=== PATIENT | female | born 2000 | race Caucasian/White ===

== ENCOUNTER 2022-11-18 18:51 | Emergency (ER) | payer BC ==
[~2022-11-18] VITALS: Ht 170.2 cm; Wt 119.6 kg
[2022-11-18 21:30] VITALS: BP 131/80
== END 2022-11-18 21:32 | disposition home or self-care (01) ==
LOC: M ED 20:41
DX: S53.401A Unspecified sprain of right elbow, initial encounter (principal); S50.311A Abrasion of right elbow, initial encounter; S50.01XA Contusion of right elbow, initial encounter; W22.8XXA Striking against or struck by other objects, initial encounter; Y92.099 Unspecified place in other non-institutional residence as the place of occurrence of the external cause; Y93.89 Activity, other specified; F41.9 Anxiety disorder, unspecified; F32.9 Major depressive disorder, single episode, unspecified; E66.9 Obesity, unspecified

== ENCOUNTER → 2022-11-20 | Outpatient (CLI) | payer BC ==
[2022-11-20 14:53] LABS: BASO % 0.4 % (0.0-1.0); EOS # 0.1 10^3/uL (0.0-0.5); EOS % 1.7 % (0.0-3.0); HEMATOCRIT 43.7 % (36.0-47.0); HEMOGLOBIN 14.3 g/dl (12.0-15.5); LYMPH # 2.8 10^3/uL (1.5-5.0); LYMPH % 39.9 % (24.0-44.0); MEAN CORPUSCULAR HEMOGLOBIN 27.8 pg (27.0-33.0); MEAN CORPUSCULAR HGB CONC 32.7 g/dl (32.0-36.5); MONO # 0.5 10^3/uL (0.0-0.8); MONO % 6.7 % (2.0-8.0); NEUTROPHILS # 3.6 10^3/uL (1.5-8.5); NEUTROPHILS % 51.2 % (36.0-66.0); PLATELET COUNT, AUTOMATED 229 10^3/uL (150-450); RED BLOOD COUNT 5.14 10^6/uL (4.00-5.40)
[2022-11-20 15:02] LABS: ERYTHROCYTE SEDIMENTATION RATE 19 mm/hr (0-20)
[2022-11-20 15:14] LABS: ALBUMIN 3.6 G/DL (3.2-5.2); ALKALINE PHOSPHATASE 43 U/L (46-116); ALT/SGPT 194 U/L (7.0-40); AST/SGOT 90 U/L (<34); BILIRUBIN,TOTAL 0.4 MG/DL (0.3-1.2); BLOOD UREA NITROGEN 12 MG/DL (9-23); CALCIUM LEVEL 9.1 MG/DL (8.5-10.1); CARBON DIOXIDE LEVEL 24 MMOL/L (20-31); CHLORIDE LEVEL 106 MMOL/L (98-107); CREATININE FOR GFR 0.62 MG/DL (0.55-1.30); GLOMERULAR FILTRATION RATE > 60.0 (>60); GLUCOSE, FASTING 92 MG/DL (60-100); POTASSIUM SERUM 4.4 MMOL/L (3.5-5.1); SODIUM LEVEL 138 MMOL/L (136-145); TOTAL PROTEIN 7.1 G/DL (5.7-8.2)
[2022-11-20 15:16] LABS: URIC ACID 5.3 MG/DL (3.1-7.8)
[2022-11-23 20:07] LABS: ANA (HEP2) Positive (.); CYCLIC CITRULLINATED PEPTIDE 5 units (0-19)
== END ==
LOC: M LAB 13:57
PROVIDERS: ATTEND Physician Assistant Surgical
DX: M75.41 Impingement syndrome of right shoulder (principal); M25.511 Pain in right shoulder; M25.512 Pain in left shoulder

== ENCOUNTER 2023-04-01 21:42 | Emergency (ER) | payer BC ==
[~2023-04-01] VITALS: Ht 170.2 cm; Wt 119.2 kg
[2023-04-01 22:29] LABS: BASO # 0.1 10^3/uL (0.0-0.2); BASO % 0.7 % (0.0-1.0); EOS # 0.2 10^3/uL (0.0-0.5); EOS % 1.4 % (0.0-3.0); HEMOGLOBIN 14.1 g/dl (12.0-15.5); LYMPH # 3.6 10^3/uL (1.5-5.0); LYMPH % 33.4 % (24.0-44.0); MEAN CORPUSCULAR HEMOGLOBIN 28.4 pg (27.0-33.0); MEAN CORPUSCULAR HGB CONC 33.6 g/dl (32.0-36.5); MEAN CORPUSCULAR VOLUME 84.7 fl (80.0-96.0); MONO # 0.8 10^3/uL (0.0-0.8); MONO % 7.8 % (2.0-8.0); NEUTROPHILS % 56.5 % (36.0-66.0); PLATELET COUNT, AUTOMATED 288 10^3/uL (150-450); RED BLOOD COUNT 4.96 10^6/uL (4.00-5.40); WHITE BLOOD COUNT 10.6 10^3/uL (4.0-10.0)
[2023-04-01 22:52] LABS: ALBUMIN 3.8 G/DL (3.2-5.2); ALKALINE PHOSPHATASE 52 U/L (46-116); ALT/SGPT 206 U/L (7.0-40); AST/SGOT 93 U/L (<34); BILIRUBIN,DIRECT 0.1 MG/DL (<0.4); BILIRUBIN,TOTAL 0.3 MG/DL (0.3-1.2); BLOOD UREA NITROGEN 12 MG/DL (9-23); CALCIUM LEVEL 9.8 MG/DL (8.5-10.1); CARBON DIOXIDE LEVEL 28 MMOL/L (20-31); CHLORIDE LEVEL 104 MMOL/L (98-107); CREATININE FOR GFR 0.77 MG/DL (0.55-1.30); GLOMERULAR FILTRATION RATE > 60.0 (>60); GLUCOSE, FASTING 93 MG/DL (60-100); POTASSIUM SERUM 4.7 MMOL/L (3.5-5.1); SODIUM LEVEL 139 MMOL/L (136-145); TOTAL PROTEIN 6.9 G/DL (5.7-8.2)
[2023-04-01 22:54] LABS: LIPASE 32 U/L (12-53)
[2023-04-01 23:00] LABS: HCG, SERUM QUALITATIVE NEGATIVE (NEGATIVE)
[2023-04-02 07:45] VITALS: BP 132/81
== END 2023-04-02 08:06 | disposition home or self-care (01) ==
LOC: M ED 21:42
DX: R10.9 Unspecified abdominal pain (principal)

== ENCOUNTER → 2023-06-22 | Outpatient (CLI) | payer BC | LOC: M RAD 11:43 | PROVIDERS: ATTEND Surgery | DX: R10.11 Right upper quadrant pain (principal) | CPT/HCPCS: 78227; A9537 ==

== ENCOUNTER 2023-08-26 07:32 | Day surgery (SDC) | payer BC ==
[~2023-08-26] VITALS: Ht 170.2 cm; Wt 114.8 kg
[~2023-08-26 07:32] MED LIST: DEXM1CAP14 PO
[2023-08-26] MEDS ORDERED: LR 1,000 ML IV SCH ×2 (08:10→10:05)
[2023-08-26] MEDS ORDERED: METOCLOPRAMIDE INJ 10MG/2ML VIAL As Ordered ONE (08:10)
[2023-08-26] MEDS ORDERED: fentaNYL 100 MCG/2 ML INJECTION As Ordered ONE (08:10)
[2023-08-26] MEDS ORDERED: MIDAZOLAM INJ 2MG/2ML VIAL As Ordered ONE (08:10)
[2023-08-26] MEDS ORDERED: ONDANSETRON 4MG 2ML VIAL IV PRN (10:05)
[2023-08-26] MEDS: fentaNYL 100 MCG/2 ML INJECTION IV PRN ×4 (10:19→10:33)
[2023-08-26] MEDS ORDERED: NORCO, ANEXSIA 5/325MG TABLET (HYDROcodone/ACETAMINOPHEN) PO PRN (10:20)
[2023-08-26] MEDS: MEPERIDINE 25 MG/ML 1ML VIAL IV PRN ×2 (10:28→10:38)
[2023-08-26] MEDS ORDERED: HYDROMORPHONE HCL 0.5 MG/ 0.5 ML SYRINGE IV PRN (10:50)
[2023-08-26] MEDS ORDERED: KETOROLAC 30 MG/ML 1ML VIAL IV ONE (10:50)
[2023-08-26] MEDS ORDERED: ACETAMINOPHEN 325 MG TAB PO ONE (10:50)
[2023-08-26 12:40] VITALS: BP 135/88; TEMP 97.8; O2SAT 98
== END 2023-08-26 12:45 | disposition home or self-care (01) ==
LOC: M SDC 07:32
PROVIDERS: ATTEND Surgery
DX: K82.8 Other specified diseases of gallbladder (principal); Z90.49 Acquired absence of other specified parts of digestive tract

== ENCOUNTER 2023-10-10 04:42 | Emergency (ER) | payer BC ==
[~2023-10-10] VITALS: Ht 170.2 cm; Wt 114.0 kg
[2023-10-10 05:38] LABS: BASO % 0.4 % (0.0-1.0); EOS # 0.3 10^3/uL (0.0-0.5); EOS % 2.9 % (0.0-3.0); HEMATOCRIT 41.7 % (36.0-47.0); LYMPH # 1.7 10^3/uL (1.5-5.0); LYMPH % 16.1 % (24.0-44.0); MEAN CORPUSCULAR HGB CONC 33.6 g/dl (32.0-36.5); MEAN CORPUSCULAR VOLUME 86.5 fl (80.0-96.0); MONO # 0.9 10^3/uL (0.0-0.8); NEUTROPHILS # 7.7 10^3/uL (1.5-8.5); NEUTROPHILS % 72.3 % (36.0-66.0); PLATELET COUNT, AUTOMATED 290 10^3/uL (150-450); RED BLOOD COUNT 4.82 10^6/uL (4.00-5.40); WHITE BLOOD COUNT 10.6 10^3/uL (4.0-10.0)
[2023-10-10 06:08] LABS: BLOOD UREA NITROGEN 10 MG/DL (9-23); CALCIUM LEVEL 8.8 MG/DL (8.5-10.1); CARBON DIOXIDE LEVEL 24 MMOL/L (20-31); CHLORIDE LEVEL 106 MMOL/L (98-107); CREATININE FOR GFR 0.64 MG/DL (0.55-1.30); GLOMERULAR FILTRATION RATE > 60.0 (>60); GLUCOSE, FASTING 105 MG/DL (60-100); POTASSIUM SERUM 4.1 MMOL/L (3.5-5.1); SODIUM LEVEL 139 MMOL/L (136-145)
[2023-10-10] MEDS ORDERED: LIDOCAINE 1% MDV 20ML VIAL SC ONE (08:35)
[2023-10-10] MEDS ORDERED: DOXY-443 PO (09:29)
[2023-10-10 09:41] VITALS: BP 131/88; TEMP 98; O2SAT 99
== END 2023-10-10 09:44 | disposition home or self-care (01) ==
LOC: M ED 04:42
DX: L05.01 Pilonidal cyst with abscess (principal)

== ENCOUNTER 2023-11-11 09:08 | Day surgery (SDC) | payer BC ==
[~2023-11-11] VITALS: Ht 170.2 cm; Wt 112.5 kg
[~2023-11-11 09:08] MED LIST changes: +DOXY-443 PO; +LIDOCAINE 2% 100MG/5ML SDV (FOR ANES.) As Ordered ONE; +MIDAZOLAM INJ 2MG/2ML VIAL As Ordered ONE; +propofoL 200 MG/20 ML VIAL As Ordered ONE
[2023-11-11] MEDS ORDERED: LR 1,000 ML IV SCH ×2 (09:30→10:45)
[2023-11-11] MEDS ORDERED: CHLOROPROCAINE PRES. FREE 3% 20ML VIAL As Ordered ONE (10:14)
[2023-11-11] MEDS ORDERED: oxyCODONE 5MG TAB PO PRN (10:45)
[2023-11-11] MEDS ORDERED: ONDANSETRON 4MG 2ML VIAL IV PRN (10:45)
[2023-11-11] MEDS ORDERED: HYDROMORPHONE HCL 0.5 MG/ 0.5 ML SYRINGE IV PRN (10:45)
[2023-11-11] MEDS ORDERED: fentaNYL 100 MCG/2 ML INJECTION IV PRN (10:45)
[2023-11-11 11:20] VITALS: BP 119/88; TEMP 97.1; O2SAT 100
== END 2023-11-11 11:58 | disposition home or self-care (01) ==
LOC: M SDC 09:08
PROVIDERS: ATTEND Surgery
DX: L05.91 Pilonidal cyst without abscess (principal); F90.9 Attention-deficit hyperactivity disorder, unspecified type; F41.9 Anxiety disorder, unspecified; F32.A Depression, unspecified; Z79.899 Other long term (current) drug therapy
CPT/HCPCS: 11770; 81025; 88304; J2250; J2401

== ENCOUNTER → 2024-02-17 | Outpatient (CLI) | payer BC ==
[~2024-02-17] MED LIST changes: +ISOVUE-370 76% 100ML VIAL As Ordered ONE; -LIDOCAINE 2% 100MG/5ML SDV (FOR ANES.) As Ordered ONE; -MIDAZOLAM INJ 2MG/2ML VIAL As Ordered ONE; -propofoL 200 MG/20 ML VIAL As Ordered ONE
== END ==
LOC: M RAD 16:16
PROVIDERS: ATTEND Physician Assistant
DX: R10.12 Left upper quadrant pain (principal)

== ENCOUNTER 2024-04-21 08:56 | Day surgery (SDC) | payer BC ==
[~2024-04-21] VITALS: Ht 170.2 cm; Wt 108.0 kg
[~2024-04-21 08:56] MED LIST changes: +DOXY-323 PO; -DOXY-443 PO; -ISOVUE-370 76% 100ML VIAL As Ordered ONE
[2024-04-21] MEDS: NS 1,000 ML IV ONE (09:55)
[2024-04-21] MEDS ORDERED: fentaNYL 100 MCG/2 ML INJECTION As Ordered ONE (10:26)
[2024-04-21] MEDS ORDERED: LIDOCAINE 2% 100MG/5ML SDV (FOR ANES.) As Ordered ONE (10:50)
[2024-04-21] MEDS ORDERED: propofoL 200 MG/20 ML VIAL As Ordered ONE (10:50)
[2024-04-21 10:52] VITALS: TEMP 97.4
[2024-04-21 11:09] VITALS: BP 123/76; O2SAT 97
== END 2024-04-21 11:15 | disposition home or self-care (01) ==
LOC: M OPP 08:56
PROVIDERS: ATTEND Surgery
DX: K29.70 Gastritis, unspecified, without bleeding (principal); R10.13 Epigastric pain; Z79.3 Long term (current) use of hormonal contraceptives; Z79.891 Long term (current) use of opiate analgesic; Z79.899 Other long term (current) drug therapy
CPT/HCPCS: 43239; 88305; J3010

== ENCOUNTER → 2024-05-02 | Outpatient (CLI) | payer BC ==
[2024-05-02 14:36] LABS: ALBUMIN 3.6 G/DL (3.2-5.2); ALKALINE PHOSPHATASE 48 U/L (46-116); ALT/SGPT 48 U/L (7.0-40); AST/SGOT 25 U/L (<34); BILIRUBIN,TOTAL 0.8 MG/DL (0.3-1.2); BLOOD UREA NITROGEN 12 MG/DL (9-23); CALCIUM LEVEL 9.2 MG/DL (8.5-10.1); CARBON DIOXIDE LEVEL 26 MMOL/L (20-31); CHLORIDE LEVEL 107 MMOL/L (98-107); CREATININE FOR GFR 0.68 MG/DL (0.55-1.30); FREE T4 1.18 NG/DL (0.89-1.76); GLOMERULAR FILTRATION RATE > 60.0 (>60); GLUCOSE, FASTING 78 MG/DL (60-100); HCG, SERUM QUANTITATIVE 2.7 MIU/ML (<4.2); POTASSIUM SERUM 4.1 MMOL/L (3.5-5.1); SODIUM LEVEL 137 MMOL/L (136-145); THYROID STIMULATING HORMONE 1.068 uIU/ML (0.55-4.78); TOTAL PROTEIN 6.7 G/DL (5.7-8.2)
[2024-05-02 14:37] LABS: PROLACTIN 15.99 NG/ML
[2024-05-02 14:38] LABS: ESTRADIOL 195.5 PG/ML
== END ==
LOC: M LAB 13:13
PROVIDERS: ATTEND Nurse Practitioner Family
DX: N91.2 Amenorrhea, unspecified (principal)

== ENCOUNTER → 2024-06-06 | Outpatient (CLI) | payer BC ==
[~2024-06-06] MED LIST changes: +E-Z-HD 98% w/w 340GM SUSP BTL As Ordered ONE; +E-Z-PAQUE 96% w/w SUSP 176GM BTL As Ordered ONE
== END ==
LOC: M RAD 09:13
PROVIDERS: ATTEND Physician Assistant
DX: R10.13 Epigastric pain (principal)

== ENCOUNTER → 2024-06-19 | Outpatient (REF) ==
[~2024-06-19] MED LIST changes: -E-Z-HD 98% w/w 340GM SUSP BTL As Ordered ONE; -E-Z-PAQUE 96% w/w SUSP 176GM BTL As Ordered ONE
== END ==
LOC: M EMP 16:06
PROVIDERS: ATTEND Family Medicine
DX: Z11.52 Encounter for screening for COVID-19 (principal)

== ENCOUNTER → 2024-10-30 | Outpatient (REF) ==
[~2024-10-30] MED LIST changes: -DOXY-323 PO; +DOXY-441 PO
== END ==
LOC: M EMP 09:27
PROVIDERS: ATTEND Family Medicine
DX: Z01.89 Encounter for other specified special examinations (principal)

== ENCOUNTER 2024-11-28 15:31 | Emergency (ER) | payer BC ==
[~2024-11-28] VITALS: Ht 170.2 cm; Wt 115.5 kg
[2024-11-28 15:34] VITALS: BP 132/84; TEMP 98.6; O2SAT 99
[2024-11-28] MEDS ORDERED: ACE65ERTAB PO (15:39)
[2024-11-28] MEDS ORDERED: MULTTAB20 PO (15:39)
== END 2024-11-28 18:08 | disposition home or self-care (01) ==
LOC: M ED 15:31
DX: M43.6 Torticollis (principal); Z79.1 Long term (current) use of non-steroidal anti-inflammatories (NSAID); Z79.810 Long term (current) use of selective estrogen receptor modulators (SERMs)

== ENCOUNTER → 2024-12-12 | Outpatient (CLI) | payer BC ==
[~2024-12-12] MED LIST changes: +ACE65ERTAB PO; +MULTTAB20 PO
== END ==
LOC: M RAD 15:41
PROVIDERS: ATTEND Nurse Practitioner Family
DX: Z34.91 Encounter for supervision of normal pregnancy, unspecified, first trimester (principal); Z3A.01 Less than 8 weeks gestation of pregnancy

== ENCOUNTER 2024-12-25 15:03 | Emergency (ER) | payer BC ==
[~2024-12-25] VITALS: Ht 170.2 cm; Wt 117.1 kg
[2024-12-25] MEDS ORDERED: CLOB0.057 (15:12)
[2024-12-25 17:14] LABS: BASO % 0.3 % (0.0-1.0); EOS # 0.1 10^3/uL (0.0-0.5); EOS % 0.6 % (0.0-3.0); HEMATOCRIT 39.3 % (36.0-47.0); HEMOGLOBIN 13.4 g/dl (12.0-15.5); LYMPH # 2.6 10^3/uL (1.5-5.0); LYMPH % 23.8 % (24.0-44.0); MEAN CORPUSCULAR HEMOGLOBIN 29.1 pg (27.0-33.0); MEAN CORPUSCULAR HGB CONC 34.1 g/dl (32.0-36.5); MEAN CORPUSCULAR VOLUME 85.2 fl (80.0-96.0); MONO # 0.7 10^3/uL (0.0-0.8); MONO % 6.4 % (2.0-8.0); NEUTROPHILS # 7.5 10^3/uL (1.5-8.5); NEUTROPHILS % 68.5 % (36.0-66.0); PLATELET COUNT, AUTOMATED 266 10^3/uL (150-450); RED BLOOD COUNT 4.61 10^6/uL (4.00-5.40); WHITE BLOOD COUNT 10.9 10^3/uL (4.0-10.0)
[2024-12-25 17:28] LABS: KETONE, URINE AUTO RFX NEGATIVE (NEGATIVE); LEUKOCYTE ESTERASE UR AUTO RFX NEGATIVE (NEGATIVE); NITRITE, URINE AUTO RFX NEGATIVE (NEGATIVE); RBC, URINE AUTO RFX 1 /HPF (0-3); SQUAM EPITHELIAL CELL UR AURFX 1 /HPF (0-6); WBC, URINE AUTO RFX 1 /HPF (0-3)
[2024-12-25 17:36] LABS: BLOOD UREA NITROGEN 9 MG/DL (9-23); CALCIUM LEVEL 9.3 MG/DL (8.5-10.1); CARBON DIOXIDE LEVEL 24 MMOL/L (20-31); CHLORIDE LEVEL 107 MMOL/L (98-107); CREATININE FOR GFR 0.55 MG/DL (0.55-1.30); GLOMERULAR FILTRATION RATE > 60.0 (>60); GLUCOSE, FASTING 83 MG/DL (60-100); POTASSIUM SERUM 4.1 MMOL/L (3.5-5.1); SODIUM LEVEL 140 MMOL/L (136-145)
[2024-12-25 17:48] LABS: HCG, SERUM QUANTITATIVE 64300.6 MIU/ML (<4.2)
[2024-12-25 19:12] LABS: Trichomonas vaginalis (AMP) NOT DETECTED (NEGATIVE)
[2024-12-25] MEDS: RHOGAM 300MCG (1500IU) INJ IM ONE (19:27)
[2024-12-25 19:36] LABS: GC DNA AMPLIFICATION NEGATIVE (NEGATIVE)
[2024-12-25 20:27] VITALS: BP 130/78; TEMP 96.8; O2SAT 97
== END 2024-12-25 20:32 | disposition home or self-care (01) ==
LOC: M ED 15:03
DX: O20.8 Other hemorrhage in early pregnancy (principal); Z3A.09 9 weeks gestation of pregnancy; O99.611 Diseases of the digestive system complicating pregnancy, first trimester; K21.9 Gastro-esophageal reflux disease without esophagitis; O99.341 Other mental disorders complicating pregnancy, first trimester; F41.9 Anxiety disorder, unspecified; F32.A Depression, unspecified; Z79.899 Other long term (current) drug therapy
CPT/HCPCS: 76801; 80048; 81001; 84702; 85025; 86850; 86900; 86901; 87661; 87810; 87850; 93976; 96372; 99283; J2790

== ENCOUNTER 2025-01-06 21:00 | Emergency (ER) | payer BC ==
[~2025-01-06] VITALS: Ht 170.2 cm; Wt 114.9 kg
[~2025-01-06 21:00] MED LIST changes: +CLOB0.057
[2025-01-06 21:03] VITALS: TEMP 97.7
[2025-01-06 21:28] LABS: BASO % 0.3 % (0.0-1.0); EOS # 0.1 10^3/uL (0.0-0.5); EOS % 0.8 % (0.0-3.0); HEMATOCRIT 41.1 % (36.0-47.0); HEMOGLOBIN 13.9 g/dl (12.0-15.5); LYMPH # 2.6 10^3/uL (1.5-5.0); LYMPH % 26.3 % (24.0-44.0); MEAN CORPUSCULAR HEMOGLOBIN 28.8 pg (27.0-33.0); MEAN CORPUSCULAR HGB CONC 33.8 g/dl (32.0-36.5); MEAN CORPUSCULAR VOLUME 85.1 fl (80.0-96.0); MONO # 0.7 10^3/uL (0.0-0.8); MONO % 6.6 % (2.0-8.0); NEUTROPHILS # 6.5 10^3/uL (1.5-8.5); NEUTROPHILS % 65.8 % (36.0-66.0); PLATELET COUNT, AUTOMATED 242 10^3/uL (150-450); RED BLOOD COUNT 4.83 10^6/uL (4.00-5.40); WHITE BLOOD COUNT 9.9 10^3/uL (4.0-10.0)
[2025-01-06 21:56] LABS: BLOOD UREA NITROGEN 7 MG/DL (9-23); CALCIUM LEVEL 8.9 MG/DL (8.5-10.1); CARBON DIOXIDE LEVEL 24 MMOL/L (20-31); CHLORIDE LEVEL 106 MMOL/L (98-107); CREATININE FOR GFR 0.54 MG/DL (0.55-1.30); GLOMERULAR FILTRATION RATE > 60.0 (>60); GLUCOSE, FASTING 84 MG/DL (60-100); POTASSIUM SERUM 3.7 MMOL/L (3.5-5.1); SODIUM LEVEL 140 MMOL/L (136-145)
[2025-01-06 22:24] LABS: HCG, SERUM QUANTITATIVE 75575.1 MIU/ML (<4.2)
[2025-01-07] MEDS ORDERED: RHOGAM 300MCG (1500IU) INJ IM ONE (01:00)
[2025-01-07 01:14] VITALS: BP 112/58; O2SAT 99
== END 2025-01-07 01:15 | disposition home or self-care (01) ==
LOC: M ED 21:00
DX: O26.851 Spotting complicating pregnancy, first trimester (principal); Z3A.11 11 weeks gestation of pregnancy; Z79.1 Long term (current) use of non-steroidal anti-inflammatories (NSAID); Z79.810 Long term (current) use of selective estrogen receptor modulators (SERMs)

== ENCOUNTER → 2025-01-12 | Outpatient (REF) | payer BC | LOC: M PLALAB 15:25 | PROVIDERS: ATTEND Obstetrics & Gynecology | DX: Z34.80 Encounter for supervision of other normal pregnancy, unspecified trimester (principal) ==

== ENCOUNTER → 2025-01-15 | Outpatient (CLI) | payer BC ==
[2025-01-15 11:33] LABS: HEMATOCRIT 38.9 % (36.0-47.0); HEMOGLOBIN 13.2 g/dl (12.0-15.5); MEAN CORPUSCULAR HEMOGLOBIN 28.8 pg (27.0-33.0); MEAN CORPUSCULAR HGB CONC 33.9 g/dl (32.0-36.5); MEAN CORPUSCULAR VOLUME 84.9 fl (80.0-96.0); PLATELET COUNT, AUTOMATED 254 10^3/uL (150-450); RED BLOOD COUNT 4.58 10^6/uL (4.00-5.40); WHITE BLOOD COUNT 9.4 10^3/uL (4.0-10.0)
[2025-01-15 11:45] LABS: HEMOGLOBIN A1c 4.7 % (4.0-6.0)
[2025-01-15 11:56] LABS: GLUCOSE CHALLENGE TEST 1 HOUR 109 MG/DL (LESS THAN 140)
[2025-01-15 12:28] LABS: HIV 1&2 SCREEN NEGATIVE (NEGATIVE)
[2025-01-15 12:36] LABS: HEPATITIS C VIRUS ABY INDEX 0.04 INDEX (<0.8)
[2025-01-15 13:04] LABS: Trichomonas vaginalis (AMP) NOT DETECTED (NEGATIVE)
[2025-01-15 13:27] LABS: GC DNA AMPLIFICATION NEGATIVE (NEGATIVE)
== END ==
LOC: M LAB 09:17
PROVIDERS: ATTEND Obstetrics & Gynecology
DX: Z34.80 Encounter for supervision of other normal pregnancy, unspecified trimester (principal)

== ENCOUNTER → 2025-03-09 | Outpatient (CLI) | payer BC | LOC: M RAD 13:57 | PROVIDERS: ATTEND Obstetrics & Gynecology | DX: Z34.02 Encounter for supervision of normal first pregnancy, second trimester (principal); Z3A.19 19 weeks gestation of pregnancy ==

== ENCOUNTER 2025-05-11 17:44 | Outpatient (CLI) | payer BC ==
[~2025-05-11] VITALS: Ht 170.2 cm; Wt 120.6 kg
[2025-05-11] MEDS ORDERED: VITA100T59 PO (18:04)
[2025-05-11] MEDS ORDERED: OMEP10CASR PO (18:04)
[2025-05-11] MEDS ORDERED: ASPI81CH33 PO (18:04)
[2025-05-11] MEDS ORDERED: IRON325T2 PO (18:04)
[2025-05-11] MEDS ORDERED: HOME MED LIST COMPLETE! XX SCH (18:05)
[2025-05-11 18:13] VITALS: BP 143/97
[2025-05-11 18:36] VITALS: BP 138/89
[2025-05-11 18:40] LABS: PLATELET COUNT, AUTOMATED 239 10^3/uL (150-450)
[2025-05-11 18:46] VITALS: BP 138/93
[2025-05-11] MEDS: ACETAMINOPHEN 500 MG TAB PO ONE (18:51)
[2025-05-11 18:56] VITALS: BP 140/95
[2025-05-11 19:06] VITALS: BP 135/83
[2025-05-11 19:10] LABS: TOTAL PROTEIN,RANDOM URINE < 6.0 MG/DL (0.0-14.0)
[2025-05-11 19:13] LABS: LDH LACTATE DEHYDROGENASE 173 U/L (120-246)
[2025-05-11 19:15] LABS: ALT/SGPT 20 U/L (7.0-40); AST/SGOT 18 U/L (<34); CREATININE FOR GFR 0.48 MG/DL (0.55-1.30); GLOMERULAR FILTRATION RATE > 90.0 (>60)
[2025-05-11 19:16] VITALS: BP 138/88
== END 2025-05-11 19:23 | disposition home or self-care (01) ==
LOC: M LDO 17:44
PROVIDERS: ATTEND Advanced Practice Midwife
DX: O26.893 Other specified pregnancy related conditions, third trimester (principal); O99.213 Obesity complicating pregnancy, third trimester; R03.0 Elevated blood-pressure reading, without diagnosis of hypertension; R51.0 Headache with orthostatic component, not elsewhere classified; E66.9 Obesity, unspecified; Z67.11 Type A blood, Rh negative; Z3A.28 28 weeks gestation of pregnancy
CPT/HCPCS: 36415; 59025; 82247; 82570; 83615; 84156; 84450; 84460; 84550; 85027; G0463

== ENCOUNTER → 2025-05-16 | Outpatient (CLI) | payer BC ==
[~2025-05-16] MED LIST changes: +ASPI81CH33 PO; +IRON325T2 PO; +OMEP10CASR PO; +VITA100T59 PO
[2025-05-16 12:28] LABS: PLATELET COUNT, AUTOMATED 233 10^3/uL (150-450)
[2025-05-16 13:02] LABS: TOTAL PROTEIN,RANDOM URINE 20.7 MG/DL (0.0-14.0)
[2025-05-18 08:12] LABS: PIGF 40.7 pg/mL (Not Estab.); SFLT PIGF RATIO 100 (0-39); SFLT1 4065 pg/mL (Not Estab.)
== END ==
LOC: M LAB 11:45
PROVIDERS: ATTEND Obstetrics & Gynecology
DX: O13.3 Gestational [pregnancy-induced] hypertension without significant proteinuria, third trimester (principal); Z3A.00 Weeks of gestation of pregnancy not specified

== ENCOUNTER → 2025-06-01 | Outpatient (REF) | payer BC ==
[~2025-06-01] MED LIST changes: -ACE65ERTAB PO; +ACET-1593 PO
[2025-06-01 13:10] LABS: IRON (FE) 89.0 UG/DL (50-170); PERCENT SATURATION 26.0 % (13.2-45.0)
== END ==
LOC: M LAB REF 12:01
PROVIDERS: ATTEND Obstetrics & Gynecology
DX: E61.1 Iron deficiency (principal)

== ENCOUNTER 2025-06-05 08:01 | Inpatient (IN) | payer BC ==
[~2025-06-05] VITALS: Ht 170.2 cm; Wt 125.7 kg
[2025-06-05] VITALS (46 sets, daily range): BP systolic 91–203; BP diastolic 51–122; O2SAT 95–99
[2025-06-05] MEDS ORDERED: HOME MED LIST COMPLETE! XX SCH (08:30)
[2025-06-05] MEDS: NIFEdipine 10 MG CAP PO ONE (08:44)
[2025-06-05 09:08] LABS: PLATELET COUNT, AUTOMATED 214 10^3/uL (150-450)
[2025-06-05 09:29] LABS: LDH LACTATE DEHYDROGENASE 300 U/L (120-246)
[2025-06-05 09:31] LABS: ALT/SGPT 50 U/L (7.0-40); AST/SGOT 64 U/L (<34); CALCIUM LEVEL 8.8 MG/DL (8.5-10.1); CARBON DIOXIDE LEVEL 22 MMOL/L (20-31); CHLORIDE LEVEL 106 MMOL/L (98-107); CREATININE FOR GFR 0.75 MG/DL (0.55-1.30); GLOMERULAR FILTRATION RATE > 90.0 (>60); POTASSIUM SERUM 4.5 MMOL/L (3.5-5.1); SODIUM LEVEL 141 MMOL/L (136-145)
[2025-06-05 10:38] LABS: TOTAL PROTEIN,RANDOM URINE > 2500.0 MG/DL (0.0-14.0)
[2025-06-05] MEDS: LR 1,000 ML IV SCH (11:10)
[2025-06-05] MEDS: MAGNESIUM *L&D* 4 GM/100 ML BAG (40 MG/ML) IV ONE (11:11)
[2025-06-05] MEDS: MAG Sulf (OBGYN) 20GM/500ML 20,000 MG in IV 1 EA IV SCH (11:11)
[2025-06-05] MEDS: BETAMETHASONE SOLUSPAN 6 MG/ML 5 ML VIAL IM SCH (11:11)
[2025-06-05] MEDS: MORPHINE 10 MG/ML 1 ML VIAL IV PRN (11:15)
[2025-06-05] MEDS: LABETALOL 100 MG/20 ML VIAL IV STA ×2 (11:26→12:49)
[2025-06-05] MEDS: NIFEdipine 10 MG CAP PO SCH (13:15)
[2025-06-05] MEDS: LABETALOL 200 MG TAB PO SCH (13:16)
[2025-06-05 15:09] LABS: PLATELET COUNT, AUTOMATED 164 10^3/uL (150-450)
[2025-06-05 15:22] LABS: INR 0.83
[2025-06-05 15:45] LABS: LDH LACTATE DEHYDROGENASE 657 U/L (120-246)
[2025-06-05 15:49] LABS: ALT/SGPT 189 U/L (7.0-40); AST/SGOT 282 U/L (<34); CALCIUM LEVEL 9.0 MG/DL (8.5-10.1); CARBON DIOXIDE LEVEL 20 MMOL/L (20-31); CHLORIDE LEVEL 103 MMOL/L (98-107); CREATININE FOR GFR 0.79 MG/DL (0.55-1.30); GLOMERULAR FILTRATION RATE > 90.0 (>60); POTASSIUM SERUM 4.6 MMOL/L (3.5-5.1); SODIUM LEVEL 137 MMOL/L (136-145)
[2025-06-05 16:13] LABS: TOTAL PROTEIN,RANDOM URINE > 2500.0 MG/DL (0.0-14.0)
[2025-06-05] MEDS: BICITRA 30 ML SOLN UDC PO ONE (16:42)
[2025-06-05] MEDS: AZITHROMYCIN INJ 500 MG, VIAL MATE ADAPTER 1 EACH in NS 250 ML IV ONE (16:43)
[2025-06-05] MEDS: ceFAZolin SODIUM 3 GM in DEXTROSE 5% (D5W) MINI-BAG PLU 100 ML IV ONE (17:08)
[2025-06-05] MEDS ORDERED: MORPHINE PRES-FREE INJ 10 MG/10 ML VIAL As Ordered ONE (18:06)
[2025-06-05] MEDS ORDERED: OXYTOCIN INJ 10UNITS/ML 1ML VIAL As Ordered ONE (18:07)
[2025-06-05] MEDS ORDERED: OXYTOCIN 30UNITS IN 0.9% NaCl 500ML IV BAG As Ordered ONE (18:07)
[2025-06-05] MEDS ORDERED: ONDANSETRON 4MG 2ML VIAL As Ordered ONE (18:08)
[2025-06-05] MEDS ORDERED: dexAMETHasone 4 MG/ML 1 ML VIAL As Ordered ONE (18:08)
[2025-06-05] MEDS ORDERED: ACETAMINOPHEN 1000MG/100ML IV BAG As Ordered ONE (20:44)
[2025-06-05] MEDS ORDERED: PHENYLephrine 500MCG 5ML (100MCG/ML) SYRINGE As Ordered ONE (20:58)
[2025-06-05 21:45] LABS: CORD GAS ABE V -9.4; CORD GAS HCO3 V 19.8 MMOL/L; CORD GAS O2 SAT V 66.5 %; CORD GAS PCO2 V 55.3 mmHg; CORD GAS PH V 7.172 UNITS; CORD GAS PO2 V 34.9 mmHg; CORD GAS SBC V 16.4 MMOL/L; CORD GAS TCO2 V 21.5 MMOL/L
[2025-06-05] MEDS ORDERED: CALCIUM CARBONATE 500 MG CHEW U/D PO PRN (22:05)
[2025-06-05] MEDS ORDERED: PROMETHAZINE 25 MG TAB PO PRN (22:05)
[2025-06-05] MEDS ORDERED: ACETAMINOPHEN 500 MG TAB PO PRN (22:05)
[2025-06-05] MEDS ORDERED: SIMETHICONE 80MG CHEW TAB PO PRN (22:05)
[2025-06-05] MEDS ORDERED: MORPHINE 4 MG/ML 1 ML VIAL IV PRN (22:05)
[2025-06-05] MEDS ORDERED: ANUSOL HC CREAM 30 GM TOP PRN (22:05)
[2025-06-05] MEDS ORDERED: PERCOCET 5MG/325MG TAB PO PRN (22:05)
[2025-06-05] MEDS ORDERED: NALOXONE INJ 0.4 MG/1 ML VIAL IV PRN ×2 (22:30)
[2025-06-05] MEDS ORDERED: ONDANSETRON 4MG 2ML VIAL IV PRN (22:30)
[2025-06-05] MEDS ORDERED: **NOTE PATIENT COMMENT** MISC XX SCH (22:30)
[2025-06-05] MEDS ORDERED: diphenhydrAMINE 50 MG/ML VIAL As Ordered ONE (22:31)
[2025-06-05] MEDS: diphenhydrAMINE 50 MG/ML VIAL IV PRN (22:32)
[2025-06-05 22:52] LABS: PLATELET COUNT, AUTOMATED 148 10^3/uL (150-450)
[2025-06-05 23:06] LABS: LDH LACTATE DEHYDROGENASE 453 U/L (120-246)
[2025-06-05] MEDS ORDERED: KETOROLAC 30 MG/ML 1 ML VIAL As Ordered ONE (23:10)
[2025-06-05] MEDS: KETOROLAC 30 MG/ML 1 ML VIAL IV SCH (23:11)
[2025-06-05 23:18] LABS: ALT/SGPT 125 U/L (7.0-40); AST/SGOT 160 U/L (<34); CALCIUM LEVEL 7.9 MG/DL (8.5-10.1); CARBON DIOXIDE LEVEL 20 MMOL/L (20-31); CHLORIDE LEVEL 105 MMOL/L (98-107); CREATININE FOR GFR 0.89 MG/DL (0.55-1.30); GLOMERULAR FILTRATION RATE > 90.0 (>60); POTASSIUM SERUM 5.2 MMOL/L (3.5-5.1); SODIUM LEVEL 138 MMOL/L (136-145)
[2025-06-06] VITALS (24 sets, daily range): BP systolic 108–160; BP diastolic 55–97; TEMP 98.1; O2SAT 97
[2025-06-06] MEDS ORDERED: PERCOCET 5MG/325MG TAB As Ordered ONE
[2025-06-06] MEDS: PERCOCET 5MG/325MG TAB PO PRN (00:01)
[2025-06-06 07:09] LABS: PLATELET COUNT, AUTOMATED 164 10^3/uL (150-450)
[2025-06-06] MEDS: LR 1,000 ML IV SCH (07:13)
[2025-06-06] MEDS: DOCUSATE SODIUM 100 MG CAPSULE PO SCH (09:25)
[2025-06-06] MEDS: PRENATAL VITAMINS CHEWABLE TABLET PO SCH (09:25)
[2025-06-06] MEDS: SLF 3 ML SYR IV SCH (09:26)
[2025-06-06] MEDS: RHOGAM 300MCG (1500IU) INJ IM SCH (11:51)
[2025-06-06] MEDS: LABETALOL 200 MG TAB PO SCH (21:37)
[2025-06-07] MEDS: IBUPROFEN 800 MG TAB PO SCH (01:08)
[2025-06-07 02:02] VITALS: BP 149/90; O2SAT 97
[2025-06-07 05:53] VITALS: BP 158/96; O2SAT 99
[2025-06-07 06:41] LABS: PLATELET COUNT, AUTOMATED 171 10^3/uL (150-450)
[2025-06-07 06:57] LABS: LDH LACTATE DEHYDROGENASE 281 U/L (120-246)
[2025-06-07 06:58] LABS: ALT/SGPT 62 U/L (7.0-40); AST/SGOT 44 U/L (<34); CREATININE FOR GFR 0.66 MG/DL (0.55-1.30); GLOMERULAR FILTRATION RATE > 90.0 (>60)
[2025-06-07] MEDS: MEASLES,MUMPS,RUBELLA VACCINE INJ (MMR-II) SC.IMMUN ONE (09:00)
[2025-06-07 09:26] LABS: TOTAL PROTEIN,RANDOM URINE 120.6 MG/DL (0.0-14.0)
[2025-06-07 12:25] VITALS: BP 120/60; O2SAT 97
[2025-06-07 18:00] VITALS: BP 150/84; O2SAT 98
[2025-06-07 21:48] VITALS: O2SAT 98
[2025-06-07 21:49] VITALS: BP 142/84
[2025-06-08 01:37] VITALS: BP 132/74
[2025-06-08 01:44] VITALS: O2SAT 98
[2025-06-08 05:35] VITALS: BP 134/68; O2SAT 97
[2025-06-08 08:48] VITALS: BP 148/90
[2025-06-08 10:30] VITALS: BP 138/76; O2SAT 99
[2025-06-08] MEDS ORDERED: COLA100C5 PO (12:07)
[2025-06-08] MEDS ORDERED: PERCOCET PO (12:07)
[2025-06-08] MEDS ORDERED: LABE20TAB PO (12:07)
[2025-06-08] MEDS ORDERED: IBUP80TA PO (12:07)
== END 2025-06-08 17:15 | disposition home or self-care (01) | DRG 540 ==
LOC: M LDO 08:01 → M LDI 10:48 → M OBS 06-06 11:20
PROVIDERS: ADMIT Obstetrics & Gynecology; ATTEND Obstetrics & Gynecology
PROC: 10D00Z1 Extraction of Products of Conception, Low, Open Approach (ICD-10-PCS; principal; 2025-06-05 17:00)
DX: O14.24 HELLP syndrome, complicating childbirth (principal); O36.5930 Maternal care for other known or suspected poor fetal growth, third trimester, not applicable or unspecified; Z3A.32 32 weeks gestation of pregnancy; Z37.0 Single live birth